=== PATIENT | female | born 1950 ===

== ENCOUNTER 2016-06-22 20:04 | Emergency (ER) | payer BC, MEDICARE ==
[2016-06-22] MEDS ORDERED: Cephalexin CAP* 500 MG PO ONE (21:27)
[2016-06-22] MEDS ORDERED: methylPREDNISolone SOD SUCC* 125 MG 2 ML VIAL IM ONE (21:27)
--- NOTE | 2016-06-22 21:33 | UC ---
Skin Complaint HPI - HPI Summary HPI Summary: paul was stung by an insect this afternoon. the lower half of the left calf is red, hard and swollen, she states that has all happened in the last hour. not responding to benadryl - History of Current Complaint Time Seen by Provider: 06/22/16 21:21 Stated Complaint: LEFT LEG INSECT STING/PAIN Hx Obtained From: Patient Hx Last Menstrual Period: ~ 10 years ?: No Onset/Duration: Sudden Onset, Lasting Hours Skin Exposure Onset/Duration: Hours Ago Timing: Constant Onset Severity: Moderate Current Severity: Severe Character: Swelling, Pruritus, Redness, Raised, Painful Aggravating: Nothing Alleviating: Nothing Related History: Insect Bite/Sting - Allergy/Home Medications Allergies/Adverse Reactions: Allergies Allergy/AdvReac Type Severity Reaction Status Date / Time Penicillins Allergy Severe Hives Verified 06/22/16 21:40 Review of Systems Constitutional: Negative Skin: Other - redness, induration Eyes: Negative ENT: Negative Respiratory: Negative Cardiovascular: Negative Gastrointestinal: Negative Genitourinary: Negative Motor: Negative Neurovascular: Negative Musculoskeletal: Negative Neurological: Negative Psychological: Negative All Other Systems Reviewed And Are Negative: Yes PMH/Surg Hx/FS Hx/Imm Hx Previously Healthy: Yes - Surgical History Surgical History: Yes Surgery Procedure, Year, and Place: Tonsillectomy, 1961. Tubal Ligation, 1977. Ovarian Cystectomies, 2004 - Family History Known Family History: Negative: Hypertension - Social History Alcohol Use: Rare Substance Use Type: None Smoking Status (MU): Never Smoked Tobacco Physical Exam Triage Information Reviewed: Yes Appearance: Well-Appearing, Well-Nourished, Pain Distress Vital Signs Reviewed: Yes Eye Exam: Normal Eyes: Positive: Conjunctiva Clear ENT Exam: Normal ENT: Positive: Hearing grossly normal, Pharynx normal, TMs normal Dental Exam: Normal Neck exam: Normal Neck: Positive: Supple, Nontender, No Lymphadenopathy Respiratory Exam: Normal Respiratory: Positive: Chest non-tender, Lungs clear, Normal breath sounds Cardiovascular Exam: Normal Cardiovascular: Positive: RRR, No Murmur, Pulses Normal Abdominal Exam: Normal Abdomen Description: Positive: Nontender, No Organomegaly, Soft Bowel Sounds: Positive: Present Musculoskeletal Exam: Normal Musculoskeletal: Positive: Strength Intact, ROM Intact, Edema @ - left mid calf down into medial akle and top of left foot, Other: - pedal pulse +2, good sensation in toes Neurological Exam: Normal Neurological: Positive: Alert, Muscle Tone Normal Psychological Exam: Normal Skin Exam: Normal Course/Dx - Course Course Of Treatment: hx obtained, exam performed, meds reviewed, solumedrol given and started on abx. meds prescribed. - Differential Diagnoses - Skin Complaint Differential Diagnoses: Abscess, Cellulitis, MRSA - Diagnoses Provider Diagnoses: allergic reaction to insect bite. cellulitis. edema Discharge - Discharge Plan Condition: Stable Disposition: HOME Patient Education Materials: General Allergic Reaction (ED) Referrals: Bartolo Tineo MD [Primary Care Provider] - Additional Instructions: 1. take the medication as prescribed. 2. ice as needed 3. keep leg elevated at rest. 4. follow up with any worsening of symptoms
[2016-06-22 21:40] VITALS: BP 132/82
== END 2016-06-22 22:02 | disposition home or self-care (01) ==
LOC: UCCORT 20:04
DX: T63.481A Toxic effect of venom of other arthropod, accidental (unintentional), initial encounter (principal); Y92.9 Unspecified place or not applicable; L03.116 Cellulitis of left lower limb; R60.0 Localized edema; Z88.0 Allergy status to penicillin
CPT/HCPCS: 96372; 99212; A9270-GY; G0463; J2930

== ENCOUNTER 2017-06-27 13:02 | Emergency (ER) | payer MEDICARE, BC ==
[2017-06-27] MEDS ORDERED: Ondansetron ODT TAB* 4 MG PO ONE (15:04)
--- NOTE | 2017-06-27 15:04 | UC ---
General HPI - HPI Summary HPI Summary: pt c/o nausea with dizzy and light head upon sitting up yesterday. she did vomit but only once yesterday. she also had a single bout of diarrhea today. she describes her light head as feeling week but notes the dizziness occurs when she tilts her head forward or backwards but not with side to side. gets relief by lying flat with eyes shut. had vertigo in past but was more swaying. denies injury, headache, visual/speech changes or numb/weak arms/legs. denies cp /sob. - History of Current Complaint Hx Obtained From: Patient Hx Last Menstrual Period: ~ 10 years Onset/Duration: Sudden Onset Pain Intensity: 0 Aggravating: tilting head forward or backwards Alleviating: lying flat/still Associated Signs & Symptoms: Positive: Dizziness, Diarrhea - once this am, Nausea, Vomiting - once yesterday. Negative: Abdominal Pain, Anticoagulation Therapy, Confusion, Chest Pain, Fever, Headache <Katelin Escobedo - Last Filed: 06/27/17 14:56> <Jennifer Whyte - Last Filed: 06/27/17 16:37> - History of Current Complaint Chief Complaint: UCGI Stated Complaint: DIZZINESS/LIGHT HEADED Time Seen by Provider: 06/27/17 14:53 - Allergy/Home Medications Allergies/Adverse Reactions: Allergies Allergy/AdvReac Type Severity Reaction Status Date / Time Penicillins Allergy Hives Verified 06/27/17 14:26 PMH/Surg Hx/FS Hx/Imm Hx - Additional Past Medical History Additional PMH: preventive tx breast ca - Surgical History Surgical History: Yes Surgery Procedure, Year, and Place: Tonsillectomy, 1961. Tubal Ligation, 1977. Ovarian Cystectomies, 2004 - Family History Known Family History: Positive: Other - Breast CA Negative: Hypertension - Social History Occupation: Retired Lives: With Family Alcohol Use: Rare Substance Use Type: None Smoking Status (MU): Never Smoked Tobacco - Immunization History Most Recent Influenza Vaccination: 2983-1331 Most Recent Pneumonia Vaccination: 9486-8366 Vaccination Up to Date: Yes <Katelin Escobedo - Last Filed: 06/27/17 14:56> Review of Systems Constitutional: Negative Skin: Negative Eyes: Negative ENT: Negative Respiratory: Negative Cardiovascular: Negative Gastrointestinal: Vomiting, Diarrhea, Nausea Genitourinary: Negative Motor: Negative Neurovascular: Negative Musculoskeletal: Negative Neurological: Negative Psychological: Negative Is Patient Immunocompromised?: No All Other Systems Reviewed And Are Negative: Yes <David Escobedoie - Last Filed: 06/27/17 14:56> Physical Exam Triage Information Reviewed: Yes Appearance: Well-Appearing, Other: - lying flat with eyes closed Vital Signs: Initial Vital Signs Temp 98.1 F 06/27/17 14:16 Pulse 78 06/27/17 14:16 Resp 16 06/27/17 14:16 BP 146/79 06/27/17 14:16 Pulse Ox 97 06/27/17 14:16 Vital Signs Reviewed: Yes Eyes: Positive: Conjunctiva Clear, Other: - PERRL, EOMI. ENT: Positive: Pharynx normal, TMs normal. Negative: Nasal congestion, Nasal drainage Neck: Positive: Supple, Nontender, No Lymphadenopathy, Other: - No carotid bruits. Negative: Nuchal Rigidity Respiratory: Positive: Lungs clear, Normal breath sounds Cardiovascular: Positive: RRR, No Murmur, Pulses Normal Abdomen Description: Positive: Nontender, No Organomegaly, Soft Musculoskeletal: Positive: ROM Intact Neurological: Positive: Alert, Other: - CN 2-12 grossly intact. rapid alternating moves without difficluty. 5/5 strength and 2+ reflexes x4. Turns head with no s/s's. sits up plus tilting hed up and down reproduces pt symptoms that resolved when lying flat and still again. Psychological: Positive: Age Appropriate Behavior Skin Exam: Normal <Katelin Escobedo - Last Filed: 06/27/17 14:56> Vital Signs: Initial Vital Signs Temp 98.1 F 06/27/17 14:16 Pulse 78 06/27/17 14:16 Resp 16 06/27/17 14:16 BP 146/79 06/27/17 14:16 Pulse Ox 97 06/27/17 14:16 <Jennifer Whyte - Last Filed: 06/27/17 16:37> Diagnostics - EKG Cardiac Rate: NL Cardiac Rhythm: Sinus: Normal Ectopy: None ST Segment: Normal <Katelin Escobedo - Last Filed: 06/27/17 14:56> Re-Evaluation - Re-Evaluation Second Eval Change: Improved - nausea has resolved. able to sit more upright and notes the lighthead/dizzy is improving Third Eval Re-Evaluation Time: 16:28 Change: Improved - able to sit up and turn head plus stood at bedside. is feeling very good. taking more gingerale. feels well enough to go home. <Katelin Escobedo - Last Filed: 06/27/17 14:56> Course/Dx - Course Course Of Treatment: ekg unremarkable. mild increase HR with orthostatics. hx/ PE supports peripheral vertigo. no concern for cva. symptoms resolved with tx. pt may have a mild element of dehydration as well since not much to eat/drink since yesterday. drank fluids here. - Differential Dx - Multi-Symptom Provider Diagnoses: vertigo <Katelin Escobedo - Last Filed: 06/27/17 14:56> Discharge - Sign-Out/Discharge Documenting (check all that apply): Discharge - Billing Disposition and Condition Condition: IMPROVED Disposition: HOME <Katelin Escobedo - Last Filed: 06/27/17 14:56> - Billing Disposition and Condition Condition: IMPROVED Disposition: HOME <Jennifer Whyte - Last Filed: 06/27/17 16:37> - Discharge Plan Condition: Improved Disposition: HOME Prescriptions: Meclizine TAB* [Antivert 12.5 TAB*] 25 mg PO TID PRN #10 tab PRN Reason: Dizziness Patient Education Materials: Vertigo (DC) Referrals: Bartolo Tineo MD [Primary Care Provider] - 5 Days Attestation Statement User Type: Provider <Jennifer Whyte - Last Filed: 06/27/17 16:37>
[2017-06-27] MEDS ORDERED: Meclizine TAB* 12.5 MG PO ONE (15:22)
[2017-06-27 16:28] VITALS: BP 139/85
== END 2017-06-27 16:42 | disposition home or self-care (01) ==
LOC: UCCORT 13:02
DX: R42 Dizziness and giddiness (principal); R19.7 Diarrhea, unspecified; R11.10 Vomiting, unspecified
CPT/HCPCS: 93005; 99213; A9270-GY; G0463